=== PATIENT | female | born 1960 | race African-American/Black ===

== ENCOUNTER 2021-04-29 14:01 | Emergency (ER) | payer OTHER ==
[2021-04-29 14:16] VITALS: BP 152/80
[2021-04-29 14:34] LABS: URINE BILIRUBIN NEGATIVE (Negative); URINE BLOOD NEGATIVE (Negative); URINE CLARITY CLEAR; URINE COLOR YELLOW; URINE GLUCOSE-RANDOM* NEGATIVE (Negative); URINE KETONES NEGATIVE (Negative); URINE LEUKOCYTES-REFLEX NEGATIVE (Negative); URINE NITRITE-REFLEX NEGATIVE (Negative); URINE PROTEIN (DIPSTICK) NEGATIVE (Negative); URINE UROBILINOGEN 0.2 E.U./dl (0.2-1.0)
[2021-04-29 17:58] LABS: ABSOLUTE NEUTROPHILS 6.4 thou/uL (1.4-8.2); BASOPHILS 0.8 % (0.0-2.0); EOSINOPHILS 2.9 % (0.0-3.0); HEMATOCRIT 36.9 % (37.0-47.0); HEMOGLOBIN 12.3 gm/dL (12.0-15.0); LYMPHOCYTES 14.9 % (24.0-44.0); MCH 24.6 pg (26.0-34.0); MCHC 33.4 g/dL (28.0-37.0); MCV 73.9 fL (80.0-100.0); MONOCYTES 7.4 % (1.0-8.0); PLATELET COUNT 219 thou/uL (150-400); RBC 4.99 mil/uL (4.20-5.00); RDW 16.9 % (10.5-14.5); WBC 8.6 thou/uL (4.0-11.0)
[2021-04-29 18:05] LABS: CALCIUM 9.2 mg/dL (8.5-10.1); CREATININE 0.8 mg/dL (0.6-1.0); POTASSIUM 3.7 mmol/L (3.5-5.1)
[2021-04-29 18:15] LABS: ALBUMIN 3.4 g/dL (3.4-5.0); TOTAL BILIRUBIN 0.7 mg/dL (0.2-1.0); TOTAL PROTEIN 7.4 g/dL (6.4-8.2)
[2021-04-29] MEDS ORDERED: PERCOCET 5-3251 EACH PO ×2 (20:18)
[2021-05-04] MEDS ORDERED: METOPROLOL TART25 MG PO ×2 (12:23)
[2021-05-04] MEDS ORDERED: MELOXICAM15 MG PO ×2 (12:24)
[2021-05-04] MEDS ORDERED: FLOVENT HFA 4444 MCG INH ×2 (12:24)
[2021-05-04] MEDS ORDERED: LIPITOR40 MG PO ×2 (12:26)
[2021-05-04] MEDS ORDERED: PROAIR RESPICL90 MCG INH ×2 (12:26)
[2021-05-04] MEDS ORDERED: NORVASC10 MG PO ×2 (12:26)
[2021-05-04] MEDS ORDERED: WELLBUTRIN SR150 MG PO ×2 (12:27)
[2021-05-04] MEDS ORDERED: TYLENOL EXTRA500 MG PO ×2 (12:28)
== END 2021-04-29 15:08 | disposition home or self-care (01) ==
LOC: ER 14:01
PROVIDERS: Physician Assistant
DX: R35.0 Frequency of micturition (principal); R10.9 Unspecified abdominal pain; Z53.21 Procedure and treatment not carried out due to patient leaving prior to being seen by health care provider

== ENCOUNTER 2021-04-29 16:56 | Emergency (ER) | payer OTHER ==
[~2021-04-29] VITALS: Ht 160 cm; Wt 158.8 kg
[2021-04-29 18:02] LABS: URINE BILIRUBIN NEGATIVE (Negative); URINE BLOOD NEGATIVE (Negative); URINE CLARITY CLEAR; URINE COLOR YELLOW; URINE GLUCOSE-RANDOM* NEGATIVE (Negative); URINE KETONES NEGATIVE (Negative); URINE LEUKOCYTES-REFLEX NEGATIVE (Negative); URINE NITRITE-REFLEX NEGATIVE (Negative); URINE PROTEIN (DIPSTICK) NEGATIVE (Negative); URINE UROBILINOGEN 0.2 E.U./dl (0.2-1.0)
[2021-04-29 20:10] LABS: CREATININE 0.8 mg/dL (0.6-1.0); POTASSIUM 3.9 mmol/L (3.5-5.1)
[2021-04-29 20:12] LABS: HEMATOCRIT 37.5 % (37.0-47.0)
[2021-04-29 20:14] LABS: ABSOLUTE NEUTROPHILS 8.7 thou/uL (1.4-8.2); BASOPHILS 0.6 % (0.0-2.0); EOSINOPHILS 2.9 % (0.0-3.0); HEMOGLOBIN 12.2 gm/dL (12.0-15.0); MCH 24.4 pg (26.0-34.0); MCHC 32.6 g/dL (28.0-37.0); MONOCYTES 6.7 % (1.0-8.0); PLATELET COUNT 232 thou/uL (150-400); POLYS 73.8 % (36.0-66.0); RDW 17.2 % (10.5-14.5); WBC 13.9 thou/uL (4.0-11.0)
[2021-04-29] MEDS ORDERED: PERCOCET 5-3251 EACH PO (20:18)
[2021-04-29 20:25] VITALS: BP 132/74
[2021-05-04] MEDS ORDERED: METOPROLOL TART25 MG PO (12:23)
[2021-05-04] MEDS ORDERED: MELOXICAM15 MG PO (12:24)
[2021-05-04] MEDS ORDERED: FLOVENT HFA 4444 MCG INH (12:24)
[2021-05-04] MEDS ORDERED: LIPITOR40 MG PO (12:26)
[2021-05-04] MEDS ORDERED: PROAIR RESPICL90 MCG INH (12:26)
[2021-05-04] MEDS ORDERED: NORVASC10 MG PO (12:26)
[2021-05-04] MEDS ORDERED: WELLBUTRIN SR150 MG PO (12:27)
[2021-05-04] MEDS ORDERED: TYLENOL EXTRA500 MG PO (12:28)
== END 2021-04-29 20:25 | disposition home or self-care (01) ==
LOC: ER 16:56
PROVIDERS: Emergency Medicine
DX: K80.20 Calculus of gallbladder without cholecystitis without obstruction (principal); Z88.6 Allergy status to analgesic agent

== ENCOUNTER → 2021-05-05 | Outpatient (CLI) | payer OTHER ==
[~2021-05-05] MED LIST: FLOVENT HFA 4444 MCG INH; LIPITOR40 MG PO; MELOXICAM15 MG PO; METOPROLOL TART25 MG PO; NORCO5 PO; NORVASC10 MG PO; PERCOCET 5-3251 EACH PO; PROAIR RESPICL90 MCG INH; TYLENOL EXTRA500 MG PO; WELLBUTRIN SR150 MG PO
== END ==
LOC: LAB 08:48
PROVIDERS: ATTEND Student in an Organized Health Care Education/Training Program
DX: Z01.812 Encounter for preprocedural laboratory examination (principal); Z20.822 Contact with and (suspected) exposure to COVID-19

== ENCOUNTER 2021-05-09 06:29 | Day surgery (SDC) | payer OTHER ==
[~2021-05-09] VITALS: Ht 160 cm; Wt 158.8 kg
--- NOTE | ~2021-05-09 | O ---
[facility] [place] [address] OPERATIVE REPORT Name: YASMEEN CARTAGENA Room #: 150-3 [facility] M.R.#: [id number] Admission: 05/09/21 Attend Phys: Theo Lane, Discharge: Date of : 62 Report #: [id number] THIS REPORT FOR: cc: JUMANA CHUN Physician not on staff Theo Lane MD ~ DATE OF SERVICE: 05/09/2021 PREOPERATIVE DIAGNOSIS: Symptomatic cholelithiasis. POSTOPERATIVE DIAGNOSIS: Symptomatic cholelithiasis. OPERATION: Laparoscopic cholecystectomy. SURGEON: Theo Lane MD ANESTHESIA: General. ESTIMATED BLOOD LOSS: Minimal. SPECIMENS: Gallbladder. DESCRIPTION OF PROCEDURE: After informed consent was obtained, the patient was brought to the operating room and placed supine. SCDs were placed and working, preoperative antibiotics were administered, general anesthesia was induced. The abdomen was prepped and draped in the usual sterile fashion. A 5 mm incision was made in the left upper quadrant. A 5 mm trocar was placed under direct vision. Pneumoperitoneum was established. A supraumbilical 5 mm trocar was placed. Three right upper quadrant 5 mm ports were placed under direct vision. The patient was placed in the reverse Trendelenburg position. The gallbladder was grasped and retracted cephalad. Infundibulum was grasped and retracted laterally. I dissected out the cystic duct and cystic artery. I dissected out the cystic plate. The cystic duct and artery were clipped and ligated leaving 2 clips on the remaining duct and one on the remaining artery. Gallbladder was then taken off the liver bed with electrocautery. It was placed into an Endopouch and removed. The fascia in the right sided incision was closed with a vrlodz-[id number]-xgste 0 Vicryl. Skin was closed with 4-0 Monocryl. Incisions were dressed with Steri-Strips. COMPLICATIONS: None. DISPOSITION: The patient was taken to recovery in satisfactory condition. By: [id number] MD /tootie
[~2021-05-09 06:29] MED LIST changes: -NORCO5 PO
[2021-05-09 07:08] LABS: HEMATOCRIT 38.7 % (37.0-47.0); HEMOGLOBIN 12.6 gm/dL (12.0-15.0); MCH 24.5 pg (26.0-34.0); MCHC 32.6 g/dL (28.0-37.0); RBC 5.16 mil/uL (4.20-5.00); RDW 17.5 % (10.5-14.5); WBC 8.1 thou/uL (4.0-11.0)
[2021-05-09 07:32] VITALS: BP 157/94
--- NOTE | 2021-05-09 08:55 | EKG ---
[address] [address] ELECTROCARDIOGRAM REPORT Name: YASMEEN CARTAGENA Room #: [address] [place] [address].#: [id number] Admission: 05/09/21 Attend Phys: Theo Lane, Discharge: Date of : 62 Report #: [id number] [facility] Test Date: 2021-05-09 Test Time: 07:02:35 Pat Name: YASMEEN CARTAGENA Department: Room: 150 3 Gender: F Reclaimer: SHON : 1960 Requested By: Theo Lane Order Number: [id number] MD: José Miguel Smart Measurements Intervals [place] Rate: 73 P: 52 OR: 164 QRS: 31 QRSD: 92 T: 26 QT: 391 QTc: 431 Interpretive Statements Sinus rhythm No previous ECG available for comparison Electronically Signed On 05-09-2021 8:54:59 CDT by José Miguel Smart [email or web address] <ELECTRONICALLY SIGNED> By: José Miguel Smart MD, [facility] 05/09/21 [phone] José Miguel Smart MD, FACC /EPI
[2021-05-09] MEDS ORDERED: NORCO5 PO ×2 (09:07)
--- NOTE | 2021-05-11 11:08 | PATH ---
[facility] [address] [place] [address] PATHOLOGY RPT PROCEDURE Name: YASEMEN CARTAGENA Room #: [place] [facility] [place] [id number] Admission: 05/09/21 Date of : 62 Discharge: 05/09/21 Report #: [id number] Path Case #: [id number] [facility] Accession Number: [id number] . 01 Material submitted: . gallbladder - GALLBLADDER . 01 Clinical history: . CALCULUS OF GALLBLADDER . 02 Diagnosis: Gallbladder, cholecystectomy: - Mild chronic cholecystitis. - Cholelithiasis. . (IUV:mml; 05/10/2021) [facility] 05/10/2021 1330 Local . 02 Electronically signed: . Amalia Dupree MD, Pathologist NPI- [id number] . 01 Gross description: . Fixative: Formalin Labeled: Gallbladder Specimen received: Previously disrupted gallbladder Dimensions: 6.0 x 2.5 x 1.8 cm Serosa: Light ramirez-low Lymph node: None identified Mucosa: Light ramirez to dark ramirez and focally hemorrhagic Average wall thickness: 0.1 cm Calculi: Present, black and multifaceted Abnormalities: None identified . A1- Firmware Developer body, fundus, and the cystic duct margin. ([facility]; 05/09/2021) [facility] 05/09/2021 1508 Local . 02 Pathologist provided ICD-10: K80.10 . 02 CPT . 860805 Specimen Comment: A courtesy copy of this report has been sent to [phone] Specimen Comment: Report sent to Specimen Comment: A duplicate report has been generated due to demographic updates. [address] [address] PATHOLOGY RPT PROCEDURE Name: YASMEEN CARTAGENA Room #: [place] [facility] [place].R.#: [id number] Admission: 05/09/21 Date of : 62 Discharge: 05/09/21 Report #: [id number] Path Case #: [id number] Performed at: 01 [facility] [address] [facility] [address], [place] [id number] MD Brad Pickett MD Phone: [phone] Performed at: [address] [id number] MD Amalia Dupree MD Phone: [phone]
== END 2021-05-09 11:00 | disposition home or self-care (01) ==
LOC: OR → TBA 06:29 → OR 06:29
PROVIDERS: ATTEND Surgery
DX: K80.10 Calculus of gallbladder with chronic cholecystitis without obstruction (principal); I10 Essential (primary) hypertension; E78.5 Hyperlipidemia, unspecified; J45.909 Unspecified asthma, uncomplicated; K21.9 Gastro-esophageal reflux disease without esophagitis; F41.9 Anxiety disorder, unspecified; Z98.890 Other specified postprocedural states; Z79.899 Other long term (current) drug therapy; Z90.710 Acquired absence of both cervix and uterus; Z85.41 Personal history of malignant neoplasm of cervix uteri; Z98.51 Tubal ligation status
CPT/HCPCS: 50010; 50101; 50411; 50555; 51489; 52265; 52266; 53307; 53312; 53314; 54022; 55245; 56462; 56525; 56526; 58574; 62110; 62900; 70005

== ENCOUNTER 2021-06-04 08:54 | Emergency (ER) | payer OTHER ==
[~2021-06-04] VITALS: Ht 160 cm; Wt 158.8 kg
[~2021-06-04 08:54] MED LIST changes: +NORCO5 PO
[2021-06-04 09:17] LABS: ABSOLUTE NEUTROPHILS 4.1 thou/uL (1.4-8.2); BASOPHILS 0.8 % (0.0-2.0); EOSINOPHILS 3.6 % (0.0-3.0); HEMATOCRIT 37.2 % (37.0-47.0); HEMOGLOBIN 12.1 gm/dL (12.0-15.0); LYMPHOCYTES 20.2 % (24.0-44.0); MCH 24.2 pg (26.0-34.0); MCHC 32.4 g/dL (28.0-37.0); MCV 74.8 fL (80.0-100.0); MONOCYTES 6.9 % (1.0-8.0); PLATELET COUNT 221 thou/uL (150-400); POLYS 68.5 % (36.0-66.0); RBC 4.97 mil/uL (4.20-5.00); RDW 16.9 % (10.5-14.5)
[2021-06-04 09:34] LABS: URINE BILIRUBIN NEGATIVE (Negative); URINE BLOOD NEGATIVE (Negative); URINE CLARITY CLEAR; URINE COLOR YELLOW; URINE GLUCOSE-RANDOM* NEGATIVE (Negative); URINE KETONES NEGATIVE (Negative); URINE LEUKOCYTES-REFLEX NEGATIVE (Negative); URINE NITRITE-REFLEX NEGATIVE (Negative); URINE PROTEIN (DIPSTICK) NEGATIVE (Negative)
[2021-06-04 09:38] LABS: CREATININE 0.7 mg/dL (0.6-1.0); POTASSIUM 3.5 mmol/L (3.5-5.1)
[2021-06-04 09:45] LABS: ALBUMIN 3.3 g/dL (3.4-5.0); TOTAL BILIRUBIN 0.6 mg/dL (0.2-1.0); TOTAL PROTEIN 7.2 g/dL (6.4-8.2)
[2021-06-04] MEDS ORDERED: TRAMADOL 50 MG50 MG PO (12:20)
[2021-06-04 12:48] VITALS: BP 133/67
== END 2021-06-04 12:53 | disposition home or self-care (01) ==
LOC: ER 08:54
PROVIDERS: Emergency Medicine
DX: R10.31 Right lower quadrant pain (principal); I10 Essential (primary) hypertension; J45.909 Unspecified asthma, uncomplicated; F41.9 Anxiety disorder, unspecified; K21.9 Gastro-esophageal reflux disease without esophagitis; Z90.710 Acquired absence of both cervix and uterus; Z90.49 Acquired absence of other specified parts of digestive tract; Z85.41 Personal history of malignant neoplasm of cervix uteri; Z98.890 Other specified postprocedural states; Z79.51 Long term (current) use of inhaled steroids; Z79.891 Long term (current) use of opiate analgesic; Z79.1 Long term (current) use of non-steroidal anti-inflammatories (NSAID); Z79.899 Other long term (current) drug therapy; Z88.8 Allergy status to other drugs, medicaments and biological substances